=== PATIENT | male | born 1950 | race Caucasian/White ===

== ENCOUNTER 2018-01-08 11:38 | Emergency (ER) | payer MEDICARE, BC, SELFPAY ==
[2018-01-08 11:39] VITALS: BP 141/79; PULSE 61; RESP 13; TEMP 36.8; O2SAT 99; BMI 27.7
--- NOTE | 2018-01-08 12:12 | RAD_ITS ---
STUDY: X-RAY - LEFT HAND REASON FOR EXAM: Male, 67 years old. Sports injury TECHNIQUE: 3 view(s) of the hand. COMPARISON: None. FINDINGS: Normal radiocarpal articulation. Normal distal radioulnar joint. Normal visualized carpal bones. Normal carpal articulations Normal carpometacarpal articulation of the thumb. Normal second through fifth carpometacarpal joints. An oblique extra-articular fracture of the third metacarpal is present. There is mild dorsal displacement of the distal fracture fragment. Normal metacarpophalangeal joint of the thumb. Normal interphalangeal joint of the thumb. Normal proximal and distal phalanges of the thumb. Normal metacarpophalangeal joints of the second through fifth fingers. Normal proximal and distal interphalangeal joints of the second through fifth fingers. Normal phalanges of the second through fifth fingers. The soft tissue structures are unremarkable. RAD/Hand Min 3 Views IMPRESSION: An oblique extra-articular fracture of the third metacarpal is present. There is mild dorsal displacement of the distal fracture fragment. Electronically Signed: Tano Frazier MD at 12:51 EDT Tel , Service support ,
--- NOTE | 2018-01-08 13:13 | ED.VISSUMM ---
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 No loss of consciousness. Patient initially was dazed and a little lightheaded. Patient sustained a laceration to his right elbow and has pain in his left hand. Patient also sustained a small laceration to his left ear. Patient denies any neck pain, chest pain, or abdominal pain.] Physical Examination: [HEENT-PERRLA, EOMI. Cranial nerves II through XII grossly intact. TMs clear. Mucous membranes moist. No adenopathy. No C-spine tenderness on palpation. Evaluation of the left ear reveals a superficial skin abrasion of the upper inner aspect of the left pinna. Cardiovascular-regular rate and rhythm without murmur or ectopy Lungs-clear to auscultation, chest wall stable without crepitus or subcu emphysema Abdomen-normoactive bowel sounds, soft, nontender, no rebound or rigidity, no peritoneal signs. Extremities-intact ?4, normal range of motion, normal pulses. Patient has a 2.5 cm laceration over the right olecranon with no bony tenderness on palpation. Patient also has tenderness palpation over the left hand specifically over the third metacarpal with painful range of motion at the third MCP joint. Neurovascular intact distally. Test Results: [X-rays of the left hand showed a third metacarpal fracture.] Emergency Department Course and Treatment: [Laceration repair-wound of the right elbow sterilely draped and prepped. Wound cleansed with Shur-Clens and irrigated with copious saline with syringe. Using 5-0 nylon a total of 2 single interrupted sutures placed with good wound edge approximation. Patient tired procedure well.] Treatment Plan: [I discussed case with Dr. Nicanor Bearden of orthopedics. I suspect patient may have lacerated his olecranon bursa. Patient will be started on Keflex. Patient will follow up with Dr. Bearden in the office within next couple days.] Disposition: [Discharged home in stable condition. Patient will be given a sling and a prescription for Frazer for pain.] Impression: [Mechanical fall Laceration right elbow-simple repair-suspect laceration of olecranon bursa Left hand laceration third metacarpal Left ear skin abrasion] This note was generated with [employer] dictation software. It may contain incorrect words, spelling, and punctuation that were not noted in review of the chart prior to signing ED Disposition - Plan for ED Patient: Chief Complaint: Fall Referrals: Yasir Benavidez III, MD [Primary Care Provider] -
--- NOTE | 2018-01-08 13:18 | ED.DEP ---
ED Disposition - Plan for ED Patient: Chief Complaint: Fall Instructions: ED Avulsion Dermal, ED Fx Hand Closed, ED Laceration Ext Sutr Stap Tape Prescriptions: Hydrocodone Bitart/Apap 5-325 [Plummer 5/325] 1 - 2 tab PO Q4H PRN PRN 5 Days #20 tab PRN Reason: Pain Cephalexin [Keflex] 500 mg PO Q6 #28 cap Referrals: Yasir Benavidez III, MD [Primary Care Provider] - Nicanor Bearden DO [STAFF PHYSICIAN] - 3-5 Days
--- NOTE | 2018-01-08 13:34 | ED.RN ---
right elbow wound cleaned and dried. Bacitracin and dry sterile dressing applied. Left ear abrasion cleaned and dried but still bleeding. Small dry gauze dressing applied with firm pressure. Pt tolerated well. Instructed patient to not submerge wounds under water but getting them wet in the shower is ok, change dressing daily or sooner if soiled. Instructed to not get hand splint wet at all. pt communicates understanding.
[2018-01-08 13:38] VITALS: PULSE 72; RESP 16; O2SAT 98
== END 2018-01-08 13:39 | disposition home or self-care (01) ==
PROVIDERS: Emergency Provider Emergency Medicine; Family Provider Family Medicine; PCP Family Medicine
DX: S51.011A Laceration without foreign body of right elbow, initial encounter (principal); S61.412A Laceration without foreign body of left hand, initial encounter; S00.412A Abrasion of left ear, initial encounter; W03.XXXA Other fall on same level due to collision with another person, initial encounter; Y93.81 Activity, refereeing a sports activity; Y92.39 Other specified sports and athletic area as the place of occurrence of the external cause; Y99.0 Civilian activity done for income or pay
CPT/HCPCS: 12001; 73130; 99282

== ENCOUNTER → 2020-08-19 17:37 | Outpatient (CLI) | payer MEDICARE, BC, SELFPAY | PROVIDERS: PCP Family Medicine; Referring Provider Family Medicine; Visit Provider Family Medicine | DX: U07.1 COVID-19 (principal) | CPT/HCPCS: 87635; C9803; U0003 ==

== ENCOUNTER → 2021-03-19 15:02 | Outpatient (CLI) | payer MEDICARE, BC, SELFPAY ==
[2021-03-19 16:25] LABS: PSA,Total - Annual Screen 0.23 ng/mL (0.00-4.00)
== END ==
PROVIDERS: PCP Family Medicine; Visit Provider Nurse Practitioner Adult Health
DX: Z12.5 Encounter for screening for malignant neoplasm of prostate (principal)
CPT/HCPCS: 36415; 84153; G0103

== ENCOUNTER → 2021-03-26 07:47 | Outpatient (CLI) | payer MEDICARE, BC, SELFPAY ==
--- NOTE | 2021-03-26 07:49 | CT_ITS ---
STUDY: CT ABDOMEN AND PELVIS WITH AND WITHOUT CONTRAST REASON FOR EXAM: Male, 70 years old. GROSS HEMATURIA RADIATION DOSAGE (If Supplied By Facility): CTDIvol = ( 22.87 ) mGy, DLP = ( 3364.46 ) mGycm TECHNIQUE: Transaxial images were obtained from the dome of the diaphragm to the symphysis pubis without oral contrast. was administered. Sagittal and coronal images were reconstructed. Individualized dose optimization techniques were used for this CT. COMPARISON: Comparison is made with prior study 08/10/2011. FINDINGS: Minimal increased markings at the lung bases suggestive of mild scarring. This is unchanged. Coronary artery calcification. Stable cysts are seen in both the right and left lobes of the liver. Fatty infiltration of the liver. Normal gallbladder and extrahepatic biliary system. Normal spleen. Normal pancreas. Normal bilateral adrenal glands. Normal right kidney. There is a 5.2 mm calculus in the distal portion of the right ureter just proximal to the ureteral vesicle junction. There is a 1.9 cm cyst in the upper mid lateral aspect of the right kidney. Normal visualized stomach. Normal small intestine. Normal colon. The appendix is visualized and appears normal. There is scattered atherosclerotic calcification of the abdominal aorta. The distal abdominal aorta is slightly dilated with a transverse dimension of 3.1 cm.Normal inferior vena cava. Normal retroperitoneum. Mildly thickened gallbladder wall. There is enlargement of the prostate gland. The prostate measures 4.6 x 4.4 cm. This causes indentation of the bladder base. Scattered calcifications are seen within the prostate. There is a small umbilical hernia containing fat. Mild disc space narrowing at the L5-S1 level. CT/CT Abd/Pelvis W/WO Contrast IMPRESSION: Fatty infiltration of the liver. Stable hepatic cysts. There is a 5.2 mm calculus in the distal portion of the right ureter just proximal to the ureterovesical junction. Left renal cyst. Prostatic enlargement with indentation at the bladder base. Mild thickening of the bladder wall. Mild dilatation of the distal abdominal aorta with a transverse dimension of 3.1 cm Electronically Signed: Cole Herrera MD at 10:36 EDT , Service support ,
[2021-03-26 08:05] LABS: CREATININE FINGERSTICK 1.2 mg/dL (0.70-1.30); EGFR FINGERSTICK > 60.0000 mL/min (>60)
== END ==
PROVIDERS: PCP Family Medicine; Referring Provider Nurse Practitioner Adult Health; Visit Provider Nurse Practitioner Adult Health
DX: R31.0 Gross hematuria (principal)
CPT/HCPCS: 74178; Q9967

== ENCOUNTER → 2021-04-01 11:53 | Outpatient (CLI) | payer MEDICARE, BC, SELFPAY ==
--- NOTE | 2021-04-01 11:57 | EKG12_ITS ---
Test Reason : PREOP Blood Pressure : / mmHG Vent. Rate : 057 BPM Atrial Rate : 057 BPM P-R Int : 178 ms QRS Dur : 100 ms QT Int : 408 ms P-R-T Axes : 023 -15 003 degrees QTc Int : 397 ms Sinus bradycardia Otherwise normal ECG Confirmed by NATASHA BOWER, ESTEFANI ([id number]), news videotape editor JANET ECHEVERRIA ([id number]) on 04/03/2021 10:25:12 AM Referred By: BRENDAN Confirmed By:ESTEFANI KAUR MD
[2021-04-01 12:39] LABS: Hematocrit 45.4 % (40-54); Hemoglobin 15.1 g/dL (13.0-16.5); Mean Corp Hgb Conc 33.3 g/dL (32-36); Mean Corpuscular Hgb 32.4 pg (27.0-32.0); Mean Corpuscular Volume 97.4 fL (80-94); Mean Platelet Vol. 9.9 fl (6.2-12.0); Platelet Count 257 K/mm3 (150-450); RBC Distribution Width CV 13.5 % (11.6-14.6); RBC Distribution Width SD 48.4 fl (35.1-43.9); Red Blood Count 4.66 M/mm3 (4.6-6.2); White Blood Count 8.3 K/mm3 (4.4-11.0)
[2021-04-01 12:51] LABS: Anion Gap 2 (5-15); BUN 24 mg/dL (7-18); BUN/Creat Ratio 17.1 RATIO (10-20); Calcium,Total 9.1 mg/dL (8.5-10.1); Chloride 104 mmol/L (98-107); EST Glomerular Filtration Rate 53 mL/min (>60); Est Glom Filt Rate - Afr Amer 64 mL/min (>60); Glucose 103 mg/dL (74-106); Potassium 4.5 mmol/L (3.5-5.1); Sodium Level 137 mmol/L (136-145)
== END ==
PROVIDERS: PCP Family Medicine; Visit Provider Urology
DX: Z01.812 Encounter for preprocedural laboratory examination (principal); Z01.818 Encounter for other preprocedural examination; I10 Essential (primary) hypertension
CPT/HCPCS: 36415; 80048; 85027; 93005

== ENCOUNTER → 2021-04-13 14:59 | Outpatient (CLI) | payer MEDICARE, BC, SELFPAY ==
--- NOTE | 2021-04-13 | BLA_PTH ---
PATIENT: MORGAN NAVARRO LOC: [facility] U#:[id number] AGE/SX: 74/M ROOM: RE04/13/[address]: Dr. Erasto Panchal MD : 1950 BED: DIS: SPEC #: [id number] RECD: 04/13/21 14:48 STATUS: JORDI RODRIGUEZ #: [id number] BAN: 04/13/21 00:[address]: Erasto Panchal DEPT: SURGICAL PATHOLOGY RECD BY: Saleem Granado ENTERED: 04/14/21 08:07 SP TYPE: BLADDER BX OTHR DR: Dr. Evangelista Santos MD [facility] Tissues: Urinary bladder, NOS Procedures: Surgery Specimen Level V HEADER OPERATION: Bladder resection PRE-OP DIAGNOSIS: Bladder resection TISSUE SUBMITTED: Bladder tissue MICROSCOPIC DIAGNOSIS Urinary bladder tumor, transurethral resection: Fragments of detached, atypical urothelium. See comment. AM:mariana 04/15/2021 COMMENT The specimen primarily consists of blood clots and cauterized tissue. Present in the biopsy are also fragments of urothelium with atypical cytology, one of which has a polypoid morphology. Clinical correlation is suggested. Case has been reviewed in consultation with Dr. Borges who concurs with the above diagnosis. IDC:TERESITA MICROSCOPIC DESCRIPTION Slides are reviewed. GROSS DESCRIPTION Received in fixative is one container labeled with the patient's name and designated bladder tissue. The specimen consists of multiple fragments of hemorrhagic soft tissue mixed with blood clot that in aggregate measure 1 x 0.7 x 0.3 cm. The specimen is totally submitted in one cassette. / TERESITA:mariana 04/14/21 TC:? CPT: 81431
== END ==
PROVIDERS: PCP Family Medicine; Referring Provider Urology; Visit Provider Urology
DX: D49.4 Neoplasm of unspecified behavior of bladder (principal)
CPT/HCPCS: 88305; 88307

== ENCOUNTER → 2021-06-09 18:16 | Outpatient (CLI) | payer MEDICARE, BC, SELFPAY ==
--- NOTE | 2021-06-09 | CYSPIN_PTH ---
PATIENT: MORGAN NAVARRO LOC: [facility] U#:[id number] AGE/SX: 74/M ROOM: RE06/09/[address]: Dr. Erasto Panchal MD : 1950 BED: DIS: SPEC #: [id number] RECD: 06/09/21 18:17 STATUS: JORDI RESammy #: [id number] BAN: 06/09/21 00:[address]: Erasto Panchal DEPT: CYTOLOGY RECD BY: Phu Gardiner ENTERED: 06/10/21 11:59 SP TYPE: CYSPIN FL OTHR DR: Dr. Evangelista Santos MD Tissues: Urine Procedures: Pap Stain (control) Special Stain Group II Cytospin Fluid HEADER OPERATION: Not noted PRE-OP DIAGNOSIS: Malignant neoplasm of bladder TISSUE SUBMITTED: Urine for cytology DIAGNOSIS CYTOLOGY Urine for cytology (cytospin): Rare atypical urothelial cells present. AM:mariana 06/11/2021 CYTOLOGY STUDY Slides are reviewed. CYTOLOGY GROSS Received is 45 ml of clear yellow fluid labeled with the patient's name and and designated per the requisition as urine. Submitted for cytology preparation. / mariana 06/10/2021 TC:? CPT: 16679
[2021-06-09 18:18] LABS: Cytology, Body Fluid / CSF SEE PATHOLOGY REPORT
== END ==
PROVIDERS: PCP Family Medicine; Visit Provider Urology
DX: Z85.51 Personal history of malignant neoplasm of bladder (principal)
CPT/HCPCS: 88108; 88313

== ENCOUNTER 2021-10-09 08:41 | Day surgery (SDC) | payer MEDICARE, BC, SELFPAY ==
--- NOTE | 2021-10-02 08:35 | EKG12_ITS ---
Test Reason : PRE OP Blood Pressure : / mmHG Vent. Rate : 051 BPM Atrial Rate : 051 BPM P-R Int : 186 ms QRS Dur : 092 ms QT Int : 410 ms P-R-T Axes : 051 -01 027 degrees QTc Int : 377 ms Sinus bradycardia Otherwise normal ECG Confirmed by NATASHA BOWER, ESTEFANI ([id number]), assistant editor JANET ECHEVERRIA ([id number]) on 10/05/2021 9:36:16 AM Referred By: Erasto Panchal Confirmed By:ESTEFANI KAUR MD
[2021-10-02 09:15] LABS: Hematocrit 44.1 % (40-54); Hemoglobin 14.9 g/dL (13.0-16.5); Mean Corp Hgb Conc 33.8 g/dL (32-36); Mean Corpuscular Hgb 32.5 pg (27.0-32.0); Mean Corpuscular Volume 96.3 fL (80-94); Mean Platelet Vol. 9.7 fl (6.2-12.0); Platelet Count 248 K/mm3 (150-450); Red Blood Count 4.58 M/mm3 (4.6-6.2); White Blood Count 5.5 K/mm3 (4.4-11.0)
[2021-10-02 09:32] LABS: Anion Gap 3 (5-15); BUN 22 mg/dL (7-18); BUN/Creat Ratio 18.6 RATIO (10-20); Calcium,Total 9.5 mg/dL (8.5-10.1); Chloride 106 mmol/L (98-107); Creatinine, Serum 1.18 mg/dL (0.70-1.30); EST Glomerular Filtration Rate 65 mL/min (>60); Est Glom Filt Rate - Afr Amer 78 mL/min (>60); Glucose 103 mg/dL (74-106); Potassium 4.2 mmol/L (3.5-5.1); Sodium Level 141 mmol/L (136-145)
[2021-10-09] VITALS (8 sets, daily range): BP systolic 145–181; BP diastolic 74–95; PULSE 49–82; RESP 16–18; TEMP 36.2–36.5; O2SAT 97–100; BMI 28.9
[2021-10-09] MEDS: Lactated Ringers 1,000 ML 15 ML IV (09:20)
--- NOTE | 2021-10-09 10:45 | BLB_PTH ---
PATIENT: MORGAN NAVARRO LOC: [facility] [place] U#:[id number] AGE/SX: 71/M ROOM: RE10/09/[address]: Dr. Erasto Panchal MD : 1950 BED: DIS: 10/09/2021 SPEC #: [id number] RECD: 10/09/21 13:19 STATUS: JORDI RESammy #: [id number] BAN: 10/09/21 10:[address]: Erasto Panchal DEPT: SURGICAL PATHOLOGY RECD BY: Caitlin Ndiaye ENTERED: 10/12/21 08:05 SP TYPE: TURB OTHR DR: Dr. Evangelista Santos MD Tissues: Urinary bladder, NOS Procedures: Surgery Specimen Level IV HEADER OPERATION: Cysto, transurethral resection bladder, [employer] PRE-OP DIAGNOSIS: Malignant neoplasm of bladder TISSUE SUBMITTED: Bladder tissue MICROSCOPIC DIAGNOSIS Urinary bladder lesion, biopsy: Cystitis cystica and chronic cystitis. AM:mariana 10/13/2021 MICROSCOPIC DESCRIPTION Slides are reviewed. GROSS DESCRIPTION Received in fixative is one container labeled with the patient's name and designated bladder tissue. The specimen consists of three irregular fragments of dao soft tissue that in aggregate measure 0.5 x 0.2 x 0.1 cm. The specimen is totally submitted in one cassette. / SJ:mariana 10/12/2021 TC:3 CPT: 46565
[2021-10-09] MEDS: Cefazolin 2 GM in 0.9% Normal Saline 100 ML IV (11:37)
--- NOTE | 2021-10-09 12:18 | PCM.HP.STD ---
HPI - General HPI Narrative MORGAN NAVARRO, is a 71 M who presents for a turbt of for bladder cancer PFSH Medical History (Updated 10/01/21 @ 14:11 by Anne-Marie Lackey) Alcohol use Arthritis Bladder cancer COVID Former smoker History of kidney stones History of umbilical hernia Hypertension Injury of head and neck Leg cramps Migraine headache Redness of skin Transient global amnesia Home Medications lisinopril-hydrochlorothiazide 1 tab PO DAILY 10/01/21 [History Last Taken Unknown] ciprofloxacin HCl [Cipro] 500 mg PO BID #10 tab 10/09/21 [Rx Last Taken Unknown] Allergy/AdvReac Type Severity Reaction Status Date / Time No Known Allergies Allergy Verified 10/09/21 09:13 Surgical History (Updated 10/01/21 @ 13:39 by Anne-Marie Lackey) History of cataract extraction History of colonoscopy History of cystoscopy History of hand surgery Social History Smoking Status: Former smoker Vital Signs Vital Signs Vital Signs: 10/09/21 09:14 Temperature 97.7 F L Temperature Source Temporal Pulse Rate 60 Respiratory Rate 16 Respiratory Pattern Normal Blood Pressure 168/86 H Blood Pressure Mean 113 Blood Pressure Source Monitor Blood Pressure Position Semi-Fowlers Blood Pressure Location Left Arm Pulse Ox 100 Oxygen Delivery Method Room Air Weight Weight: 105 kg Body Mass Index (BMI) 28.9 Results Lab / Micro Data Result Diagrams: 10/02/21 08:45 10/02/21 08:45
--- NOTE | 2021-10-09 12:18 | PCM.DC ---
Discharge Instructions Diet Discharge Diet: No restrictions Activity Discharge Activity: Return to Normal Activity and May Not Drive (while taking narcotic pain medications.) Dressing / Incision Call your doctor if you observe: Fever of 101 or Higher Follow Up Care Please Follow Up With: Erasto Panchal MD When: Call [phone] for an appointment Test Results: Test results from this visit will be discussed in further detail at your follow-up appointment, if applicable. Discharge Plan Admission Primary Reason for Your Visit: bladder cancer Attending Provider: Erasto Panchal Primary Care Provider: Evangelista Santos Instructions Patient Instructions: Discharge Instructions for ... Discharge Orders/Prescriptions Prescriptions: New ciprofloxacin HCl [Cipro] 500 mg tablet 500 mg PO BID Qty: 10 RF: 0 Continued lisinopril-hydrochlorothiazide 20-12.5 mg tablet 1 tab PO DAILY RF: 0 Referrals / Follow Up: Evangelista Santos MD [Primary Care Provider] - Erasto Panchal MD [STAFF PHYSICIAN] - Disposition Disposition (needs filled in before D/C Order can be placed): Home, Self Care
--- NOTE | 2021-10-09 12:18 | PCM.OPRPT ---
Report of Operation Date of Procedure: 10/09/21 Pre-Operative Diagnosis: bladder tumors Post-Operative Diagnosis: multiple in overlapping sites Surgery/Procedure Performed:: TURBT med tumor and mitomycin C instillation Description of Surgical Findings:: Patient presented to the hospital for treatment of a tumor that was found in the bladder with a very large bladder tumor. Patient understands is possible it may not be able to resect the entire tumor. Patient also understands is possible that the patient may need multiple procedures or more invasive procedures to cure him of this cancer. Patient was taken back to the operating room after smooth induction of anesthesia the patient was placed supine on the table. The patient was placed in dorsolithotomy position. The urethra and genitals prepped and draped in usual sterile fashion. I went into the bladder with a 30 degree lens and a cystoscope and identified the tumor the tumor was about 2 centimeters in size and occupying multiple areas in the bladder, in posterior wall, lateral wall and upper lateral wall.. The right and left ureteral orifice were identified. The tumors were not involved in the ureteral orifices. I then placed the resectoscope and the bladder and resected the entire tumor down to the muscle. And then cauterized the resection base to obtained hemostasis. We then placed the catheter in the bladder and the patient was taken back to the PACU in stable condition. Mitomycin C was then placed into the bladder for post resection treatment. Surgeon: sincere Type of Anesthesia: General Special Medications: Mitomycin C Drains: none
--- NOTE | 2021-10-09 13:29 | SUR.PHASEI ---
Patient held [facility] c until 1319, completed [address] post updated
== END 2021-10-09 23:59 | disposition home or self-care (01) ==
LOC: SDC 08:42 → AC 08:42
PROVIDERS: Anesthesiology; PCP Family Medicine; Referring Provider Urology; Visit Provider Urology
PROC: 0TBB8ZZ Excision of Bladder, Via Natural or Artificial Opening Endoscopic (ICD-10-PCS; CPT 52234; principal; 2021-10-09 10:35)
DX: N30.80 Other cystitis without hematuria (principal); N30.20 Other chronic cystitis without hematuria; I10 Essential (primary) hypertension; Z87.891 Personal history of nicotine dependence; M19.90 Unspecified osteoarthritis, unspecified site; Z85.51 Personal history of malignant neoplasm of bladder; Z86.16 Personal history of COVID-19; Z87.442 Personal history of urinary calculi; Z87.19 Personal history of other diseases of the digestive system; Z79.899 Other long term (current) drug therapy
CPT/HCPCS: 52234; 51720; 00912; 36415; 80048; 85027; 88305; 88307; 93005; J7120; J2405; J3490; J9280

== ENCOUNTER → 2023-06-21 | Outpatient (CLI) | payer MEDICARE, BC, SELFPAY ==
[2023-06-21 10:08] LABS: PSA,Total - Annual Screen 0.22 ng/mL (0.00-4.00)
== END | disposition home or self-care (01) ==
LOC: LAB 08:27
PROVIDERS: PCP Family Medicine; Referring Provider Urology; Visit Provider Urology
DX: Z12.5 Encounter for screening for malignant neoplasm of prostate (principal)
CPT/HCPCS: 36415; 84153; G0103

== ENCOUNTER → 2024-10-05 | Outpatient (CLI) | payer MEDICARE, BC, SELFPAY ==
--- NOTE | 2024-10-05 14:03 | PCM.CR.HP2 ---
CR - History & Physical General Arrival date:: 10/05/24 Arrival time:: 14:04 Date of Referral:: 09/17/24 Date of CR Evaluation:: 10/05/24 Referring Physician: Dr. Tamayo Primary Diagnosis: CABG History of Present Cardiac Event Onset Date Coronary Artery Bypass Graft:: Yes Vessel: CARLIN-LAD, SVG-OM, SVG-PDA Medications Ambulatory Orders ?Medication ?Instructions ?Recorded lisinopril 20 1 tab PO DAILY BP 10/01/21 mg-hydrochlorothiazide 12.5 mg tablet ciprofloxacin HCl 500 mg tablet 500 mg PO BID #10 tabs 10/09/21 (Cipro) Allergies Allergies No Known Allergies Allergy (Verified 10/09/21 09:13) Sleep Disorder Evaluation Hx of Sleep Apnea: No Do you snore loudly (louder than talking or can be heard through closed doors)?: Yes Do you often feel tired/ fatigued/ sleepy during daytime?: Yes Has anyone observed you stop breathing during sleep?: Yes History of Hypertension (for STOP score): Yes STOP Results: Positive Advanced Directives Advanced Directives Power of Editing Computer Publisher: Yes Living Will: Yes Advance Directives Information Provided: Yes Advance Directives on File: No DNR Order?:: No Past Medical History Covid-19 Screening Physicial Symptoms Other Clinical Concerns Exposure Risk Pertinent Comorbidities Has a serious heart condition:: Yes Past Medical Illness Past Medical History (Updated 10/01/21 @ 14:11 by Anne-Marie Lackey) COVID U07.1 (+) 08/2020 Bladder cancer C67.9 Alcohol use Z72.89 1-2 drinks per day Redness of skin L53.9 itching subsides with lotions Arthritis M19.90 left big toe and eugenia ankles Migraine headache G43.909 approx 1 q 6mos Injury of head and neck S09.90XA, S19.9XXA herniated discs x3 in neck Former smoker Z87.891 Leg cramps R25.2 after running 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 Hypertension I10 per pt, controlled on meds History of kidney stones Z87.442 surgery 03/2021 History of umbilical hernia Z87.2016 Past Surgical History Past Surgical History (Updated 10/01/21 @ 13:39 by Anne-Marie Lackey) History of colonoscopy Z98.890 History of hand surgery Z98.890 Gaby Block History of cataract extraction Z98.49 x3 History of cystoscopy Z98.890 Social History Smoking History Smoking Status: Former smoker Years Smokin Packs Smoked per Day: 5 (stopped 24 years ago) Alcohol Use Alcohol Usage: No Occupation 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 Hobbies, Recreation, Social Activities Hobbies: Reading and Other (refs basketball ) Recreational Activities: I am able to engage in most, but not all activities Social Environment Status Marital Status: Current Living Arrangements Living Environment:: Spouse Children How many children do you have?: 2 Do any of your children live nearby?: Yes Safety Do you feel safe in your surroundings?: Yes Assistance Do you need any assistance at home?: no Review of Systems Review of Systems Hints Review of Present Symptoms: Reports Shortness of Breath with Exertion, Dizziness/Lightheadedness, Fatigue, Appetite - Normal, Appetite - Special Diet and Sleep - Normal; Denies Shortness of Breath at Rest, PVD, Operative Discomfort, Angina, Wound Healing, Heart Arrhythmia/Irregularities or Sexual Changes Pain Is Patient Pain Free?: No Risk Factor Assessment Chief Complaint Chief Complaint: CABG Vital Signs Pulse Ox: 99 Blood Pressure: 118/70 Pulse Pulse Rate: 66 Hypertension Blood Pressure Sitting - Right Arm: 118/70 Stress Stress: Home/Family Obesity Height: 6 ft 3 in Weight:: 218 lb Weight in Pounds: 218.0 lbs Body Mass Index (BMI): 27.2 Nutritional Referral for Obesity: No Physical Inactivity Physical Inactivity: Reg Exercise 30 min/day Risk Stratification Risk Guidelines: Moderate Risk: Risk Factor for Smoking, Risk Factor for Diabetes, Risk Factor for Obesity, Risk Factor for Sedentary Lifestyle and Risk Factor for Depression and Highest Risk: Risk Factor for Dyslipidemia and Risk Factor for Hypertension For Smoking Smoking Risk Guidelines For Dyslipidemia Dyslipidemia Risk Guidelines For Diabetes Mellitus Diabetes Risk Guidelines For Obesity/Overweight Obesity/Overweight Risk Guidelines For Hypertension Hypertension Risk Guidelines For Sedentary Lifestyle Sedentary Lifestyle Risk Guidelines For Depression Depression Risk Guidelines Motivation Motivation to Participate On a scale of 1 to 10, how prepared are you to commit to attending program?: 10 What do you see as barriers to successfully being able to complete the program?: nothing What do you see as the benefits of succesfully completing the program? In other words, what do you hope to get out of participating in the program?: no Are there issues you are dealing with that will interfere with completing the program?: no Do you have a spouse or signficant other, family or friends who will help support you to complete the program?: yes
[2024-10-05 14:17] VITALS: BP 118/70; PULSE 66; O2SAT 99
--- NOTE | 2024-10-05 14:17 | PCM.CR.ITP ---
Diagnosis General Information Admitting Diagnosis: CABG Personal Learning Style:: Audio/Visual Barriers to Learning: No Barriers Stage of change r/t lifestyle modifications:: Contemplation Gave educational material for:: Treating Heart Disease, How The Heart Works, What it means to have Heart Disease, How Coronary Artery Disease is Diagnosed, Heart Procedures, What Heart Medications Do, Risk Factors & Modifications, Living an Active Life, Nutrition, Emotions & Heart Disease, Stress Management & Relaxation and Sleep Disorders & Heart Disease Education/Goals Cardiac Rehabilitation Goals Personal Goals: Initial Assessment: Improve energy level, Participate in home exercise program, Get back to work, or to resume activities faster, Improve knowledge of cardiac disease, Improve muscle strength and endurance, Improve diet and eating habits (eat healthier), Control risk factors (learn risk factor modification) and Other goal: Scale for measuring improvement of personal goals Diagnosis & Disease Process Outcomes/Goals: Pt IDs own risk factors & lifestyle modifications by Session 10, Verbalizes symptoms of angina & response by session 3., Pt independently manages and Other Additional Outcomes/Goals: Plan/Interventions: Assist Pt to ID & engage in lifestyle modification to reduce CVD risk, Instruct on individual risk factors, Review symptoms of angina & emergency actions, Review secondary diagnosis & identify educational needs. and Other see comment 30 day Reassessments:: Not Met 30 day Reassessments:: Not Met 30 day Reassessments:: Not Met 30 day Reassessments:: Not Met Final Reassessments:: Not Met Safety Referral to Physical Therapy: No Referral to [facility] Case Management: No Fall Risk Assessed:: Yes Assistive Devices:: None Exercise - Initial Assessment Visit Date of Eval: 10/05/24 (initial eval ) Mets: Pre-: >3 METS for 30 minutes by discharge, >5 METS for 30 minutes by discharge, >7 METS for 30 minutes by discharge and Unable to meet goal due to: (see comment below) Physician Prescribed Exercise Modalities: Treadmill, Schwinn Airdyne AD-7, SciFit Stepper, SciFit Pro-II Ergometer and SciFit Lateral [place] Frequency: 3x/week for 12 weeks [36 sessions] Intensity: 60-80% of age predicted maximum heart rate reserve Duration: 30 - 45 minutes Current METSs:: 3 Resting Blood Pressure: 118/70 EKG Type: A-Fib RVR post op? Outcomes & Goals Goals:: Verbalizes understanding of THR, RPE & goal METS by session 6, Documents in home exercise log/reports 30 min aerobic 5 day/wk by DC, Demonstrates accurate pulse taking by DC and Other additional outcome/goals: see below Intervention & Plan Exercise Program Goals: Instruct on personal THR & RPE, Instruct on MET level & personal MET goal, Show patient to take own pulse /validate performance until accurate, Instruct on home exercise and Other additional plan/int Physical Activity Home Exercise Physical Activity - Home Exercise: Safe Exercise, Warm-up, Self-monitoring, Cool-Down, Home Exercise > 30 min Daily and Sitting Time <3 hours/daily Outcomes & Goals Outcomes/Goals: Demonstrates correct Warm-up/exercise Cool-Down (S3) if = 2.5 METs, Verbalizes symptoms of exercise intolerance by Session 3 (S3), Demonstrate safe equipment use (S3) & follows exercise prescrition (6) and Other: See below Intervention & Plan Plan/Intervention: Instruct warm-up & cool-down if exercising at > 2 METs, Instruct on symptoms of exercise intolerance & actions to take, Instruct & monitor on saf, Assess intial functional capacity & safety risk and Other See below Nutrition - Initial Assessment Visit Date of Eval: 10/05/24 (initial eval ) Cholesterol/Lipids (Other Core Measures) Determine presence & major risk factors that modify LDL goal: Cigarette smoking, Hypertension or hypertensive medication, Low HDL cholesterol <40 mg/dL*, Family history of premature CHD in Male < 55 years: female <65 yearsFa and Age men > 45 years; women >/= 55 years Outcomes/Goals: Pt IDs own risk factors & lifestyle modifications by Session 10, Verbalizes symptoms of angina & response by session 3., Pt independently manages and Other Additional Outcomes/Goals: Intervention/Plan: Advocate for lipid panel cholesterol medication if applicable, Instruct on personal lipid levels & lipid goals/NCEP guidelines, Instruct on cholesterol and Other additional plan/int Diabetes (Other Core Measures) Diabetes Type: Not Applicable Weight Mgt (Other Care) Height: 6 ft 3 in Weight:: 218 lb BMI: 27.2 Diagnosis Overweight/Obesity BMI> 30% ICD-10 E66: No Diagnosis High BMI/Morbid Obesity BMI> 35% ICD-10 Z68: No Outcomes/Goals: Pt sets, maintains & shows weight loss goal & trend during rehab and Other additional outcomes/goals Intervention/Plan: Instruct on ideal BMI & set weight loss goal w/patient, Assist pt to ID & incorporate diet changes for weight loss by S9, Refer to Structured Weight Loss program as appropriate, Encourage goal of using 250-300dcal per session for weight loss and Other additional plan/interventions Healthy Eating Habits Will attend diet classes:: Yes Outcomes/Goals:: Consume diet rich in vegs,fruits,whole grain/high fiber,fish,lean meat, Limit sat/trans fats,cholesterol & added salts & sugars and Other additional outcome/goals: Intervention/Plan:: Assess current eating habits and Other Additional plan/interventions Education Gave educational materials for:: Signs & symptoms of hypoglycemia, Signs & symptoms of hyperglycemia, Relate diabetes to coronary artery disease and Healthy eating Core - Initial Assessment Visit Date of Eval: 10/05/24 (initial eval ) Medication Compliance Preventative Medication(s):: Aspirin, Clopidogrel/P2Y12 inhibit, Statin/lipid and Eliquis H/O mental health issues: depression, anxiety, or addiction?: No Doesn?t believe in the benefits of treatment?: No Believes medications are unnecessary or harmful?: No Has a concern about medication side effects?: No Expresses concern over the cost of medications?: No Outcomes/Goals: Verbalizes medications,desired effect & common side effects @ DC, Pt self-reports following medication regimen, Keeps card in wallet w/medications listed by DC and Other additional outcome/goals: Interventions/plans: Instruct on medication effects & side effects, Review medication list w/patient every two weeks, Instruct importance of taking meds as ordered & assist problem solving and Other additional Tobacco Use Tobacco Use: Non-smoker How long ago did you quit using tobacco products?: Greater than or equal to 6 months ago Years Smokin (pt was smoking 2 packs a day. Pt stopped 24 years ago) Hypertension Hypertension Diagnosis:: Hypertension ICD-10 I10 Resting Blood Pressure:: 116/70 [employer] Hypertension Guidelines Outcomes/Goals: Able to verbalize/achieve optimal blood pressure <130/80, Incorporates diet changes & exercise for blood pressure control by DC and Other additional outcomes/goals Interventions/plan: Instruct on optimal blood pressure, hypertension & medications, Instruct on effects of sodium, alcohol, stress, exercise &hypertension and Other additional plan/interventions Tobacco Cessation Referral Smoking Cessation Referral:: No Individual Education/Counseling:: No Education Schedule Given:: Yes Psychosocial - Initial Assess VIsit Date of Eval: 10/05/24 (initial eval ) History of previous Mental disease:: No Target Goals Target Goals Psychosocial Test Tool Used:: [employer] QOL Cardiac and PHQ-9 Questionnaire phq-9 Severity Referral to Behavioral Health PS - Interventions: Yes: Attend Stress Management Classes Outcomes/Goals: See list Psychosocial Outcomes/Goals:: ID's personal stressors & 2 strategies to manage stress by discharge and Other Additional outcome/goals: Intervention/Plan: See List Interventions/Plan:: Assess stressors,coping strategies & signs of derpression on admission, Instruct/assist pt to develop coping & personal stress Mgt strategies, Refer to Behavioral Health if appropriate, Refer to Physician if appropriate, Instruct patient to recognize signs & symptoms of depression, Instruct patient to recog and Other additional plan/intervention Patient Health Questionnaire PHQ-9 Screening Initial Assessment: 1. Little interest or pleasure in doing things: Not at all 2. Feeling down, depressed, or hopeless: Several days 3. Trouble falling or staying asleep, or sleeping too much: Not at all 4. Feeling tired or having little energy: More than half the days 5. Poor appetite or overeating: Several days 6. Feeling bad about yourself -- or that you are a failure or have let yourself or your family down: Not at all 7. Trouble concentrating on things, such as reading the newspaper or watching television: Not at all 8. Moving or speaking so slowly that other people could have noticed. Or the opposite - being so fidgety or restless that you have been moving around a lot more than usual: Several days 9. Thoughts that you would be better off , or of hurting yourself in some way: Not at all How difficult have these problems made it for you to do your work, take care of things at home, or get along with other people?: Somewhat difficult Total Score: 5 ABDULAZIZ-Q SV Test Statements CAD is a disease of the arteries in the heart: False Examples of risk factors for heart disease: True Angina is chest pain or discomfort: True The benefits of resistance training include: True Eating more meat and dairy products: False Anti-platelet medications such as aspirin are important: True The only effective way to manage stress: False An exercise warm-up slowly increases heart rate: True Prepared, processed foods usually have high sodium: True Depression is common after a heart attack: True The statin medications lower cholesterol: True To control blood pressure, lower the amount of sodium: True If someone gets chest discomfort during walking: False Transfats are partially hydrogenated vegetable oils: True Sleep apnea that is not treated increases the risk: I Don't Know To control cholesterol, one should become a vegetarian: False Someone knows if he/she is exercising at the right level: I Don't Know Diabetes cannot be prevented with exercise & health eating: False Stress is a large risk for heart attack: True A diet that can help lower blood pressure is rich in: True Total Score Total Correct Responses: 18 Self-Efficacy 6-Item Scale Initial Assessment: We would like to know how confident you are in doing certain activities. Please select your confidence level for: Fatigue Select Number: 10 Physical Discomfort or Pain Select Number: 10 Emotional Distress Select Number: 10 Other Symptoms or Health Problems Select Number: 10 Different Tasks and Activities Select Number: 10 Medication Select Number: 10 Total Score:: 10 Nutrition Survey Nutrition Survey Instructions Scoring Instructions Nutrition Survey Initial: Have you lost >10 lbs over the past 2 months without trying?: Yes Are you following a special diet at home for diabetes, low fat, or low salt?: Yes Are you interested in meeting with a dietitian for help understanding your diet?: Yes Do you eat less than 3 meals a day?: Yes Do you eat fatty meats (rueda, sausage, ribs, etc), fried foods, desserts, large amounts of salad dressings, margarine, butter, or cheese most days?: No Do you have food allergies? [Enter types in comment field]: No Do you eat in restaurants more than 3 times a week?: Yes Do you season food with salt, seasoning salt, or garlic salt?: No Do you used canned, boxed, frozen meals, or soups, seasoning packets?: No Total Score:: 5 Exercise - 30-day Assessment Physician Prescribed Exercise Modalities: Treadmill, Schwinn Airdyne AD-7, SciFit Stepper, SciFit Pro-II Ergometer and SciFit Lateral [employer] Coordinator Exercise - 60-day Assessment Physician Prescribed Exercise Modalities: Treadmill, Schwinn Airdyne AD-7, SciFit Stepper, SciFit Pro-II Ergometer and SciFit Lateral [place] Exercise - 90-day Assessment Physician Prescribed Exercise Modalities: Treadmill, Schwinn Airdyne AD-7, SciFit Stepper, SciFit Pro-II Ergometer and SciFit Lateral [place] Exercise - Final/Discharge Physician Prescribed Exercise Modalities: Treadmill, Alfonso Adams AD-7, SciFit Stepper, SciFit Pro-II Ergometer and SciFit Lateral [employer] Coordinator Frequency: 3x/week for 12 weeks [36 sessions] Intensity: 60-80% of age predicted maximum heart rate reserve Current METSs:: 3 Nutrition - 30-Day Assessment Weight Mgt (Other Care) Height: 6 ft 3 in Weight:: 218 lb BMI: 27.2 Nutrition - 60-Day Assessment Weight Mgt (Other Care) Height: 6 ft 3 in Weight:: 218 lb BMI: 27.2 Core - 30-Day Assessment Tobacco Use Years Smokin (pt was smoking 2 packs a day. Pt stopped 24 years ago) Core - Final Assessment Hypertension Resting Blood Pressure:: 116/70 [employer] [employer] Hypertension Guidelines Core - 60-Day Assessment Hypertension Resting Blood Pressure:: 116/70 [employer] [employer] Hypertension Guidelines Psychosocial - 30-Day Assess Target Goals Target Goals Referral to Behavioral Health PS - Interventions: Yes: Attend Stress Management Classes Psychosocial - 60-Day Assess Target Goals Target Goals Referral to Behavioral Health PS - Interventions: Yes: Attend Stress Management Classes Psychosocial - 90-Day Assess Target Goals Target Goals Referral to Behavioral Health PS - Interventions: Yes: Attend Stress Management Classes Psychosocial - Final Assessmen Target Goals Target Goals Referral to Behavioral Health PS - Interventions: Yes: Attend Stress Management Classes Nutrition - 90-Day Assessment Weight Mgt (Other Care) Height: 6 ft 3 in Weight:: 218 lb BMI: 27.2 Nutrition - Final Assessment Weight Mgt (Other Care) Height: 6 ft 3 in Weight:: 218 lb BMI: 27.2
[2024-10-05 15:14] VITALS: BP 116/70; BP 118/70; BMI 27.2
[2024-10-05 15:18] VITALS: BMI 27.2
== END | disposition home or self-care (01) ==
LOC: CR 13:59
PROVIDERS: PCP Family Medicine; Visit Provider Thoracic Surgery (Cardiothoracic Vascular Surgery)
DX: Z95.1 Presence of aortocoronary bypass graft (principal)

== ENCOUNTER 2024-11-09 09:15 | Outpatient (RCR) | payer MEDICARE, BC, SELFPAY ==
[2024-10-05 15:14] VITALS: BMI 27.2
--- NOTE | 2024-11-02 08:36 | CR.ITP_ITS ---
Exercise - Initial Assessment Visit Session #:: 5 Physician Prescribed Exercise Modalities: Treadmill, Schwinn Airdyne AD-7 and SciFit Stepper Nutrition - Initial Assessment Weight Mgt (Other Care) Height: 6 ft 3 in Weight:: 219 lb 8 oz BMI: 27.4 Core - Initial Assessment Tobacco Use Years Smokin (Pt was smoking 2 packs a day. Pt stopped 24 years ago.) Psychosocial - Initial Assess Target Goals Target Goals Referral to Behavioral Health PS - Interventions: Yes: Attend Stress Management Classes Patient Health Questionnaire PHQ-9 Screening 30-Day Re-eval Assessment: 1. Little interest or pleasure in doing things: Not at all 2. Feeling down, depressed, or hopeless: Several days 3. Trouble falling or staying asleep, or sleeping too much: Not at all 4. Feeling tired or having little energy: More than half the days 5. Poor appetite or overeating: Several days 6. Feeling bad about yourself -- or that you are a failure or have let yourself or your family down: Not at all 7. Trouble concentrating on things, such as reading the newspaper or watching television: Not at all 8. Moving or speaking so slowly that other people could have noticed. Or the opposite - being so fidgety or restless that you have been moving around a lot more than usual: Several days 9. Thoughts that you would be better off , or of hurting yourself in some way: Not at all How difficult have these problems made it for you to do your work, take care of things at home, or get along with other people?: Somewhat difficult Total Score: 5 Self-Efficacy 6-Item Scale 30-Day Re-eval Assessment: We would like to know how confident you are in doing certain activities. Please select your confidence level for: Fatigue Select Number: 10 Physical Discomfort or Pain Select Number: 10 Emotional Distress Select Number: 10 Other Symptoms or Health Problems Select Number: 10 Different Tasks and Activities Select Number: 10 Medication Select Number: 10 Total Score:: 10 Nutrition Survey Nutrition Survey Instructions Scoring Instructions Exercise - 30-day Assessment Visit Date of Eval: 11/02/24 Session #:: 5 Physician Prescribed Exercise Modalities: Treadmill, Schwinn Airdyne AD-7 and SciFit Stepper Frequency: 3x/week for 12 weeks [36 sessions] Intensity: 60-80% of age predicted maximum heart rate reserve Duration: 30 - 45 minutes Current METSs:: 3.9 Target Heart Rate:: 88-110 Current RPE:: 11-12 Maximum Excercise HR:: 111 Resting Blood Pressure: 150/90 Maximum Exercise Blood Pressure: 162/104 EKG Type: NSR to ST with rare PVC's Outcomes & Goals Goals:: Verbalizes understanding of THR, RPE & goal METS by session 6, Documents in home exercise log/reports 30 min aerobic 5 day/wk by DC, Demonstrates accurate pulse taking by DC and Other additional outcome/goals: see below Intervention & Plan Exercise Program Goals: Instruct on personal THR & RPE, Instruct on MET level & personal MET goal, Show patient to take own pulse /validate performance until accurate, Instruct on home exercise and Other additional plan/int Physical Activity Home Exercise Physical Activity - Home Exercise: Safe Exercise, Warm-up, Self-monitoring, Cool-Down, Home Exercise > 30 min Daily and Sitting Time <3 hours/daily Outcomes & Goals Outcomes/Goals: Demonstrates correct Warm-up/exercise Cool-Down (S3) if = 2.5 METs, Verbalizes symptoms of exercise intolerance by Session 3 (S3), Demonstrate safe equipment use (S3) & follows exercise prescrition (6) and Other: See below Intervention & Plan Plan/Intervention: Instruct warm-up & cool-down if exercising at > 2 METs, Instruct on symptoms of exercise intolerance & actions to take, Instruct & monitor on saf, Assess intial functional capacity & safety risk and Other See below 30-day Reassessments 30 day Reassessments:: Progressing Reassessment Notes & Comments:: RPE explained to pt. Pt demonstrates understanding. Exercise - 60-day Assessment Physician Prescribed Exercise Modalities: Treadmill, Schwinn Airdyne AD-7 and SciFit Stepper Exercise - 90-day Assessment Physician Prescribed Exercise Modalities: Treadmill, Schwinn Airdyne AD-7 and SciFit Stepper Exercise - Final/Discharge Physician Prescribed Exercise Modalities: Treadmill, Schwinn Airdyne AD-7 and SciFit Stepper Nutrition - 30-Day Assessment Program Goals Nutrition Program Goals Patient has diagnosis of Hyperlipidemia (ICD E78)?: Yes Visit Date of Eval: 11/02/24 Session #:: 5 Cholesterol/Lipids (Other Core Measures) Determine presence & major risk factors that modify LDL goal: Cigarette smoking, Hypertension or hypertensive medication, Low HDL cholesterol <40 mg/dL*, Family history of premature CHD in Male < 55 years: female <65 yearsFa and Age men > 45 years; women >/= 55 years Outcomes/Goals: Pt IDs own risk factors & lifestyle modifications by Session 10, Verbalizes symptoms of angina & response by session 3., Pt independently manages and Other Additional Outcomes/Goals: Intervention/Plan: Advocate for lipid panel cholesterol medication if applicable, Instruct on personal lipid levels & lipid goals/NCEP guidelines, Instruct on cholesterol and Other additional plan/int Diabetes (Other Core Measures) Diabetes Type: Not Applicable Weight Mgt (Other Care) Height: 6 ft 3 in Weight:: 219 lb 8 oz BMI: 27.4 Diagnosis Overweight/Obesity BMI> 30% ICD-10 E66: No Diagnosis High BMI/Morbid Obesity BMI> 35% ICD-10 Z68: No Outcomes/Goals: Pt sets, maintains & shows weight loss goal & trend during rehab and Other additional outcomes/goals Intervention/Plan: Instruct on ideal BMI & set weight loss goal w/patient, Assist pt to ID & incorporate diet changes for weight loss by S9, Refer to Structured Weight Loss program as appropriate, Encourage goal of using 250-300 dcal per session for weight loss and Other additional plan/interventions Healthy Eating Habits Will attend diet classes:: Yes Outcomes/Goals:: Consume diet rich in vegs,fruits,whole grain/high fiber,fish,lean meat, Limit sat/trans fats,cholesterol & added salts & sugars and Other additional outcome/goals: Intervention/Plan:: Assess current eating habits and Other Additional plan/interventions 30-day Reassessments:: Progressing Reassessment Notes & Comments:: Pt is attending nutrition class this week. Low sodium heart healthy diet encouraged. Education Gave educational materials for:: Signs & symptoms of hypoglycemia, Signs & symptoms of hyperglycemia, Relate diabetes to coronary artery disease and Healthy eating Nutrition - 60-Day Assessment Weight Mgt (Other Care) Height: 6 ft 3 in Weight:: 219 lb 8 oz BMI: 27.4 Core - 30-Day Assessment Visit Date of Eval: 11/02/24 Session #:: 5 Medication Compliance Preventative Medication(s):: Aspirin, JENNY inhibitor, Clopidogrel/P2Y12 inhibit, Statin/lipid and Eliquis H/O mental health issues: depression, anxiety, or addiction?: No Doesn?t believe in the benefits of treatment?: No Believes medications are unnecessary or harmful?: No Has a concern about medication side effects?: No Expresses concern over the cost of medications?: No Outcomes/Goals: Verbalizes medications,desired effect & common side effects @ DC, Pt self-reports following medication regimen, Keeps card in wallet w/medications listed by DC and Other additional outcome/goals: Interventions/plans: Instruct on medication effects & side effects, Review medication list w/patient every two weeks, Instruct importance of taking meds as ordered & assist problem solving and Other additional 30-day Reassessments:: Progressing Reassessment Notes & Comments:: Lisinopril 5 mg added 11/01/24 due to high BP's Tobacco Use Tobacco Use: Non-smoker How long ago did you quit using tobacco products?: Greater than or equal to 6 months ago Years Smokin (Pt was smoking 2 packs a day. Pt stopped 24 years ago.) Do you use smokeless tobacco?: No Outcomes/Goals: Smoking cessation achieved or maintained by discharge, Identify aids/strategies for achieving smoking cessation by session 6 and Other additional outcome/goals Interventions/plan: Instruct on effects of smoking & provide smoking cessation resource, Assist pt to set quit date & provide encouragement, Assist pt to develop strategies to achieve/maintain quit date, Assist pt w/nicotine replacement & medication for cessation success and Other additional plan/interventions 30-day Reassessments:: Met Reassessment Notes & Comments:: Pt is no longer a smoker Hypertension Hypertension Diagnosis:: Hypertension ICD-10 I10 Resting Blood Pressure:: 150/90 [place] [employer] Hypertension Guidelines Peak Exercise Blood Pressure:: 162/104 Outcomes/Goals: Able to verbalize/achieve optimal blood pressure <130/80, Incorporates diet changes & exercise for blood pressure control by DC and Other additional outcomes/goals Interventions/plan: Instruct on optimal blood pressure, hypertension & medications, Instruct on effects of sodium, alcohol, stress, exercise &hypertension and Other additional plan/interventions 30 day Reassessments:: Progressing Reassessment Notes & Comments:: 5 mg lisinopril added 11/01/24. Will continue to monitor and send report to physician if necessary. Tobacco Cessation Referral Smoking Cessation Referral:: No Individual Education/Counseling:: No Education Schedule Given:: Yes Psychosocial - 30-Day Assess VIsit Date of Eval: 11/02/24 History of previous Mental disease:: No Target Goals Target Goals Psychosocial Test Tool Used:: [employer] Power QOL Cardiac and PHQ-9 Questionnaire phq-9 Severity Referral to Behavioral Health PS - Interventions: Yes: Attend Stress Management Classes Outcomes/Goals: See list Psychosocial Outcomes/Goals:: ID's personal stressors & 2 strategies to manage stress by discharge and Other Additional outcome/goals: Intervention/Plan: See List Interventions/Plan:: Assess stressors,coping strategies & signs of derpression on admission, Instruct/assist pt to develop coping & personal stress Mgt strategies, Refer to Behavioral Health if appropriate, Refer to Physician if appropriate, Instruct patient to recognize signs & symptoms of depression, Instruct patient to recog and Other additional plan/intervention 30-day Reassessments: 30 day Reassessments:: Met Reassessment Notes & Comments:: ?Pt denies any psychosocial issues at this time. Psychosocial - 60-Day Assess Target Goals Target Goals Referral to Behavioral Health PS - Interventions: Yes: Attend Stress Management Classes Outcomes/Goals: See list Psychosocial Outcomes/Goals:: ID's personal stressors & 2 strategies to manage stress by discharge and Other Additional outcome/goals: Psychosocial - 90-Day Assess Target Goals Target Goals Referral to Behavioral Health PS - Interventions: Yes: Attend Stress Management Classes Psychosocial - Final Assessmen Target Goals Target Goals Referral to Behavioral Health PS - Interventions: Yes: Attend Stress Management Classes Nutrition - 90-Day Assessment Weight Mgt (Other Care) Height: 6 ft 3 in Weight:: 219 lb 8 oz BMI: 27.4 Nutrition - Final Assessment Weight Mgt (Other Care) Height: 6 ft 3 in Weight:: 219 lb 8 oz BMI: 27.4
[2024-11-02 08:52] VITALS: BP 150/90; BMI 27.4
== END 2024-11-09 23:59 ==
LOC: CR 09:15
PROVIDERS: PCP Family Medicine; Referring Provider Thoracic Surgery (Cardiothoracic Vascular Surgery); Visit Provider Thoracic Surgery (Cardiothoracic Vascular Surgery)
DX: Z95.1 Presence of aortocoronary bypass graft (principal)
CPT/HCPCS: 93798

== ENCOUNTER 2024-12-10 09:15 | Outpatient (RCR) | payer MEDICARE, BC, SELFPAY ==
[2024-11-02 08:52] VITALS: BMI 27.4
[2024-11-10 01:42] VITALS: BP 150/90
--- NOTE | 2024-11-29 07:28 | PCM.CR.ITP ---
Exercise - Initial Assessment Physician Prescribed Exercise Modalities: Treadmill, Schwinn Airdyne AD-7 and SciFit Stepper Nutrition - Initial Assessment Weight Mgt (Other Care) Height: 6 ft 3 in Weight:: 219 lb BMI: 27.3 Core - Initial Assessment Hypertension Resting Blood Pressure:: 126/80 [place] [employer] Hypertension Guidelines Psychosocial - Initial Assess Target Goals Target Goals Referral to Behavioral Health PS - Interventions: Yes: Attend Stress Management Classes Patient Health Questionnaire PHQ-9 Screening 60-Day Re-eval Assessment: 1. Little interest or pleasure in doing things: Not at all 2. Feeling down, depressed, or hopeless: Several days 3. Trouble falling or staying asleep, or sleeping too much: Not at all 4. Feeling tired or having little energy: More than half the days 5. Poor appetite or overeating: Several days 6. Feeling bad about yourself -- or that you are a failure or have let yourself or your family down: Not at all 7. Trouble concentrating on things, such as reading the newspaper or watching television: Not at all 8. Moving or speaking so slowly that other people could have noticed. Or the opposite - being so fidgety or restless that you have been moving around a lot more than usual: Several days 9. Thoughts that you would be better off , or of hurting yourself in some way: Not at all How difficult have these problems made it for you to do your work, take care of things at home, or get along with other people?: Somewhat difficult Total Score: 5 Self-Efficacy 6-Item Scale 60-Day Re-eval Assessment: We would like to know how confident you are in doing certain activities. Please select your confidence level for: Fatigue Select Number: 10 Physical Discomfort or Pain Select Number: 10 Emotional Distress Select Number: 10 Other Symptoms or Health Problems Select Number: 10 Different Tasks and Activities Select Number: 10 Medication Nutrition Survey Nutrition Survey Instructions Scoring Instructions Exercise - 30-day Assessment Physician Prescribed Exercise Modalities: Treadmill, Schwinn Airdyne AD-7 and SciFit Stepper Exercise - 60-day Assessment Visit Date of Eval: 11/29/24 Session #:: 17 Physician Prescribed Exercise Modalities: Treadmill, Schwinn Airdyne AD-7 and SciFit Stepper Frequency: 3x/week for 12 weeks [36 sessions] Intensity: 60-80% of age predicted maximum heart rate reserve Duration: 30 - 45 minutes Current METSs:: 5 Target Heart Rate:: 88-110 Current RPE:: 11.5-12 Maximum Excercise HR:: 118 Resting Blood Pressure: 118/68 Maximum Exercise Blood Pressure: 160/88 EKG Type: SR to ST w/ rare PAC, PVC. 1 Vent couplet. 1 4 beat run ectopic atrial ta Outcomes & Goals Goals:: Verbalizes understanding of THR, RPE & goal METS by session 6, Documents in home exercise log/reports 30 min aerobic 5 day/wk by DC, Demonstrates accurate pulse taking by DC and Other additional outcome/goals: see below Intervention & Plan Exercise Program Goals: Instruct on personal THR & RPE, Instruct on MET level & personal MET goal, Show patient to take own pulse /validate performance until accurate, Instruct on home exercise and Other additional plan/int Physical Activity Home Exercise Physical Activity - Home Exercise: Safe Exercise, Warm-up, Self-monitoring, Cool-Down, Home Exercise > 30 min Daily and Sitting Time <3 hours/daily Outcomes & Goals Outcomes/Goals: Demonstrates correct Warm-up/exercise Cool-Down (S3) if = 2.5 METs, Verbalizes symptoms of exercise intolerance by Session 3 (S3), Demonstrate safe equipment use (S3) & follows exercise prescrition (6) and Other: See below Intervention & Plan Plan/Intervention: Instruct warm-up & cool-down if exercising at > 2 METs, Instruct on symptoms of exercise intolerance & actions to take, Instruct & monitor on saf, Assess intial functional capacity & safety risk and Other See below 30-day Reassessments 30 day Reassessments:: Progressing Reassessment Notes & Comments:: Proper warm up and cool down explained to pt. Pt demonstrates understanding in his daily sessions. Exercise - 90-day Assessment Physician Prescribed Exercise Modalities: Treadmill, Schwinn Airdyne AD-7 and SciFit Stepper Exercise - Final/Discharge Physician Prescribed Exercise Modalities: Treadmill, Schwinn Airdyne AD-7 and SciFit Stepper Nutrition - 30-Day Assessment Weight Mgt (Other Care) Height: 6 ft 3 in Weight:: 219 lb BMI: 27.3 Nutrition - 60-Day Assessment Program Goals Nutrition Program Goals Patient has diagnosis of Hyperlipidemia (ICD E78)?: Yes Visit Date of Eval: 11/29/24 Session #:: 17 Cholesterol/Lipids (Other Core Measures) Determine presence & major risk factors that modify LDL goal: Cigarette smoking, Hypertension or hypertensive medication, Low HDL cholesterol <40 mg/dL*, Family history of premature CHD in Male < 55 years: female <65 yearsFa and Age men > 45 years; women >/= 55 years Outcomes/Goals: Pt IDs own risk factors & lifestyle modifications by Session 10, Verbalizes symptoms of angina & response by session 3., Pt independently manages and Other Additional Outcomes/Goals: Intervention/Plan: Advocate for lipid panel cholesterol medication if applicable, Instruct on personal lipid levels & lipid goals/NCEP guidelines, Instruct on cholesterol and Other additional plan/int Diabetes (Other Core Measures) Diabetes Type: Not Applicable Weight Mgt (Other Care) Height: 6 ft 3 in Weight:: 219 lb BMI: 27.3 Diagnosis Overweight/Obesity BMI> 30% ICD-10 E66: No Diagnosis High BMI/Morbid Obesity BMI> 35% ICD-10 Z68: No Outcomes/Goals: Pt sets, maintains & shows weight loss goal & trend during rehab and Other additional outcomes/goals Intervention/Plan: Instruct on ideal BMI & set weight loss goal w/patient, Assist pt to ID & incorporate diet changes for weight loss by S9, Refer to Structured Weight Loss program as appropriate, Encourage goal of using 250-300dcal per session for weight loss and Other additional plan/interventions Healthy Eating Habits Will attend diet classes:: Yes Outcomes/Goals:: Consume diet rich in vegs,fruits,whole grain/high fiber,fish,lean meat, Limit sat/trans fats,cholesterol & added salts & sugars and Other additional outcome/goals: Intervention/Plan:: Assess current eating habits and Other Additional plan/interventions 30-day Reassessments:: Met Reassessment Notes & Comments:: Pt has attended nutrition class and understands the benefits of a heart healthy low sodium diet. Pt is at a healthy weight. Will continue to monitor. Education Gave educational materials for:: Signs & symptoms of hypoglycemia, Signs & symptoms of hyperglycemia, Relate diabetes to coronary artery disease and Healthy eating Core - Final Assessment Hypertension Resting Blood Pressure:: 126/80 [place] [employer] Hypertension Guidelines Core - 60-Day Assessment Visit Date of Eval: 11/29/24 Session #:: 17 Medication Compliance Preventative Medication(s):: Aspirin, JENNY inhibitor, Clopidogrel/P2Y12 inhibit, Statin/lipid and Eliquis H/O mental health issues: depression, anxiety, or addiction?: No Doesn?t believe in the benefits of treatment?: No Believes medications are unnecessary or harmful?: No Has a concern about medication side effects?: No Expresses concern over the cost of medications?: No Outcomes/Goals: Verbalizes medications,desired effect & common side effects @ DC, Pt self-reports following medication regimen, Keeps card in wallet w/medications listed by DC and Other additional outcome/goals: Interventions/plans: Instruct on medication effects & side effects, Review medication list w/patient every two weeks, Instruct importance of taking meds as ordered & assist problem solving and Other additional Reassessment Notes & Comments:: 11/16/24 Lisinopril was increased to 10 mg QD. Tobacco Use Tobacco Use: Non-smoker How long ago did you quit using tobacco products?: Greater than or equal to 6 months ago (Pt smoked for 26 years. Pt was smoking 2 packs a day. Pt stopped smoking 24 years ago.) 30-day Reassessments:: Met Hypertension Hypertension Diagnosis:: Hypertension ICD-10 I10 Resting Blood Pressure:: 118/68 Resting Blood Pressure:: 126/80 [place] [employer] Hypertension Guidelines Peak Exercise Blood Pressure:: 160/88 Outcomes/Goals: Able to verbalize/achieve optimal blood pressure <130/80, Incorporates diet changes & exercise for blood pressure control by DC and Other additional outcomes/goals Interventions/plan: Instruct on optimal blood pressure, hypertension & medications, Instruct on effects of sodium, alcohol, stress, exercise &hypertension and Other additional plan/interventions 30 day Reassessments:: Progressing Reassessment Notes & Comments:: Pt's BP has improved. Will continue to monitor and report to physician if necessary. 11/16/24 Lisinopril was increased to 10 mg QD. Tobacco Cessation Referral Smoking Cessation Referral:: No Individual Education/Counseling:: No Education Schedule Given:: Yes Psychosocial - 30-Day Assess Target Goals Target Goals Referral to Behavioral Health PS - Interventions: Yes: Attend Stress Management Classes Outcomes/Goals: See list Psychosocial Outcomes/Goals:: ID's personal stressors & 2 strategies to manage stress by discharge and Other Additional outcome/goals: Psychosocial - 60-Day Assess VIsit Date of Eval: 11/29/24 Session #:: 17 History of previous Mental disease:: No Target Goals Target Goals Psychosocial Test Tool Used:: [employer] Power QOL Cardiac and PHQ-9 Questionnaire phq-9 Severity Referral to Behavioral Health PS - Interventions: Yes: Attend Stress Management Classes Outcomes/Goals: See list Psychosocial Outcomes/Goals:: ID's personal stressors & 2 strategies to manage stress by discharge and Other Additional outcome/goals: Intervention/Plan: See List Interventions/Plan:: Assess stressors,coping strategies & signs of derpression on admission, Instruct/assist pt to develop coping & personal stress Mgt strategies, Refer to Behavioral Health if appropriate, Refer to Physician if appropriate, Instruct patient to recognize signs & symptoms of depression, Instruct patient to recog and Other additional plan/intervention 30-day Reassessments: 30 day Reassessments:: Not Met Reassessment Notes & Comments:: Pt denies any psychosocial issues at this time Psychosocial - 90-Day Assess Target Goals Target Goals Referral to Behavioral Health PS - Interventions: Yes: Attend Stress Management Classes Psychosocial - Final Assessmen Target Goals Target Goals Referral to Behavioral Health PS - Interventions: Yes: Attend Stress Management Classes Nutrition - 90-Day Assessment Weight Mgt (Other Care) Height: 6 ft 3 in Weight:: 219 lb BMI: 27.3 Nutrition - Final Assessment Weight Mgt (Other Care) Height: 6 ft 3 in Weight:: 219 lb BMI: 27.3
[2024-11-29 07:41] VITALS: BP 118/68; BP 126/80; BMI 27.3
== END 2024-12-10 23:59 ==
LOC: CR 09:15
PROVIDERS: PCP Family Medicine; Referring Provider Thoracic Surgery (Cardiothoracic Vascular Surgery); Visit Provider Thoracic Surgery (Cardiothoracic Vascular Surgery)
DX: Z95.1 Presence of aortocoronary bypass graft (principal)
CPT/HCPCS: 93798

== ENCOUNTER 2025-01-09 09:15 | Outpatient (RCR) | payer MEDICARE, BC, SELFPAY ==
[2024-11-29 07:41] VITALS: BMI 27.3
[2024-12-11 00:50] VITALS: BP 118/68; BP 126/80; BP 150/90
--- NOTE | 2024-12-28 08:20 | CR.ITP_ITS ---
Exercise - Initial Assessment Physician Prescribed Exercise Modalities: Treadmill, Schwinn Airdyne AD-7 and SciFit Stepper Nutrition - Initial Assessment Weight Mgt (Other Care) Height: 6 ft 3 in Weight:: 219 lb 8 oz BMI: 27.4 Psychosocial - Initial Assess Target Goals Target Goals Referral to Behavioral Health PS - Interventions: Yes: Attend Stress Management Classes Patient Health Questionnaire PHQ-9 Screening 90-Day Re-eval Assessment: 1. Little interest or pleasure in doing things: Not at all 2. Feeling down, depressed, or hopeless: Several days 3. Trouble falling or staying asleep, or sleeping too much: Not at all 4. Feeling tired or having little energy: More than half the days 5. Poor appetite or overeating: Several days 6. Feeling bad about yourself -- or that you are a failure or have let yourself or your family down: Not at all 7. Trouble concentrating on things, such as reading the newspaper or watching television: Not at all 8. Moving or speaking so slowly that other people could have noticed. Or the opposite - being so fidgety or restless that you have been moving around a lot more than usual: Several days 9. Thoughts that you would be better off , or of hurting yourself in some way: Not at all How difficult have these problems made it for you to do your work, take care of things at home, or get along with other people?: Somewhat difficult Total Score: 5 Self-Efficacy 6-Item Scale 90-Day Re-eval Assessment: We would like to know how confident you are in doing certain activities. Please select your confidence level for: Fatigue Select Number: 10 Physical Discomfort or Pain Select Number: 10 Emotional Distress Select Number: 10 Other Symptoms or Health Problems Select Number: 10 Different Tasks and Activities Select Number: 10 Medication Select Number: 10 Total Score:: 10 Nutrition Survey Nutrition Survey Instructions Scoring Instructions Exercise - 30-day Assessment Physician Prescribed Exercise Modalities: Treadmill, Schwinn Airdyne AD-7 and SciFit Stepper Exercise - 60-day Assessment Physician Prescribed Exercise Modalities: Treadmill, Schwinn Airdyne AD-7 and SciFit Stepper Exercise - 90-day Assessment Visit Date of Eval: 12/28/24 Session #:: 27 Physician Prescribed Exercise Modalities: Treadmill, Schwinn Airdyne AD-7 and SciFit Stepper Frequency: 3x/week for 12 weeks [36 sessions] Intensity: 60-80% of age predicted maximum heart rate reserve Duration: 30 - 45 minutes Current METSs:: 5.1 Target Heart Rate:: 88-117 Current RPE:: 11-12 Maximum Excercise HR:: 119 Resting Blood Pressure: 126/80 Maximum Exercise Blood Pressure: 156/84 EKG Type: SB to ST with rare pac, pvc. Rare sinus arrhythmia Outcomes & Goals Goals:: Verbalizes understanding of THR, RPE & goal METS by session 6, Documents in home exercise log/reports 30 min aerobic 5 day/wk by DC, Demonstrates accurate pulse taking by DC and Other additional outcome/goals: see below Intervention & Plan Exercise Program Goals: Instruct on personal THR & RPE, Instruct on MET level & personal MET goal, Show patient to take own pulse /validate performance until accurate, Instruct on home exercise and Other additional plan/int Physical Activity Home Exercise Physical Activity - Home Exercise: Safe Exercise, Warm-up, Self-monitoring, Cool-Down, Home Exercise > 30 min Daily and Sitting Time <3 hours/daily Outcomes & Goals Outcomes/Goals: Demonstrates correct Warm-up/exercise Cool-Down (S3) if = 2.5 METs, Verbalizes symptoms of exercise intolerance by Session 3 (S3), Demonstrate safe equipment use (S3) & follows exercise prescrition (6) and Other: See below Intervention & Plan Plan/Intervention: Instruct warm-up & cool-down if exercising at > 2 METs, Instruct on symptoms of exercise intolerance & actions to take, Instruct & monitor on saf, Assess intial functional capacity & safety risk and Other See below 30-day Reassessments 30 day Reassessments:: Progressing Reassessment Notes & Comments:: Pt continues to be able to increase his exercise intensity. Will continue to encourage. Exercise - Final/Discharge Physician Prescribed Exercise Modalities: Treadmill, Schwinn Airdyne AD-7 and SciFit Stepper Nutrition - 30-Day Assessment Weight Mgt (Other Care) Height: 6 ft 3 in Weight:: 219 lb 8 oz BMI: 27.4 Nutrition - 60-Day Assessment Weight Mgt (Other Care) Height: 6 ft 3 in Weight:: 219 lb 8 oz BMI: 27.4 Core - 30-Day Assessment Hypertension [employer] Hypertension Guidelines Reassessment Notes & Comments:: 12/19 Lisinopril increased to 20 mg QD Core - Final Assessment Hypertension [employer] Hypertension Guidelines Reassessment Notes & Comments:: 12/19 Lisinopril increased to 20 mg QD Core - 90 Day Assessment Visit Date of Eval: 12/28/24 Session #:: 27 Medication Compliance Preventative Medication(s):: Aspirin, JENNY inhibitor, Clopidogrel/P2Y12 inhibit, Statin/lipid and Eliquis H/O mental health issues: depression, anxiety, or addiction?: No Doesn?t believe in the benefits of treatment?: No Believes medications are unnecessary or harmful?: No Has a concern about medication side effects?: No Expresses concern over the cost of medications?: No Outcomes/Goals: Verbalizes medications,desired effect & common side effects @ DC, Pt self-reports following medication regimen, Keeps card in wallet w/medications listed by DC and Other additional outcome/goals: Interventions/plans: Instruct on medication effects & side effects, Review medication list w/patient every two weeks, Instruct importance of taking meds as ordered & assist problem solving and Other additional Reassessment Notes & Comments:: 12/19 Lisinopril increased to 20 mg QD Tobacco Use Tobacco Use: Non-smoker (Pt smoked for 26 years. Pt was smoking 2 packs a day. Pt stopped 24 years ago.) 30-day Reassessments:: Met Hypertension Hypertension Diagnosis:: Hypertension ICD-10 I10 Resting Blood Pressure:: 126/80 [employer] Hypertension Guidelines Peak Exercise Blood Pressure:: 156/84 Outcomes/Goals: Able to verbalize/achieve optimal blood pressure <130/80, Incorporates diet changes & exercise for blood pressure control by DC and Other additional outcomes/goals Interventions/plan: Instruct on optimal blood pressure, hypertension & medications, Instruct on effects of sodium, alcohol, stress, exercise &hypertension and Other additional plan/interventions 30 day Reassessments:: Progressing Reassessment Notes & Comments:: 12/19 Lisinopril increased to 20 mg QD Tobacco Cessation Referral Smoking Cessation Referral:: No Individual Education/Counseling:: No Education Schedule Given:: Yes Psychosocial - 30-Day Assess Target Goals Target Goals Referral to Behavioral Health PS - Interventions: Yes: Attend Stress Management Classes Psychosocial - 60-Day Assess Target Goals Target Goals Referral to Behavioral Health PS - Interventions: Yes: Attend Stress Management Classes Psychosocial - -Day Assess VIsit Date of Eval: 12/28/24 Session #:: 27 History of previous Mental disease:: No Target Goals Target Goals Psychosocial Test Tool Used:: [employer] QOL Cardiac and PHQ-9 Questionnaire phq-9 Severity See PHQ-9 Score: 5 Referral to Behavioral Health PS - Interventions: Yes: Attend Stress Management Classes Outcomes/Goals: See list Psychosocial Outcomes/Goals:: ID's personal stressors & 2 strategies to manage stress by discharge and Other Additional outcome/goals: Intervention/Plan: See List Interventions/Plan:: Assess stressors,coping strategies & signs of derpression on admission, Instruct/assist pt to develop coping & personal stress Mgt strategies, Refer to Behavioral Health if appropriate, Refer to Physician if appropriate, Instruct patient to recognize signs & symptoms of depression, I nstruct patient to recog and Other additional plan/intervention 30-day Reassessments: 30 day Reassessments:: Met Reassessment Notes & Comments:: Pt denies any psychosocial issues at this time. Psychosocial - Final Assessmen Target Goals Target Goals Referral to Behavioral Health PS - Interventions: Yes: Attend Stress Management Classes Nutrition - 90-Day Assessment Program Goals Nutrition Program Goals Patient has diagnosis of Hyperlipidemia (ICD E78)?: Yes Visit Date of Eval: 12/28/24 Session #:: 27 Cholesterol/Lipids (Other Core Measures) Determine presence & major risk factors that modify LDL goal: Cigarette smoking, Hypertension or hypertensive medication, Low HDL cholesterol <40 mg/dL*, Family history of premature CHD in Male < 55 years: female <65 yearsFa and Age men > 45 years; women >/= 55 years Outcomes/Goals: Pt IDs own risk factors & lifestyle modifications by Session 10, Verbalizes symptoms of angina & response by session 3., Pt independently manages and Other Additional Outcomes/Goals: Intervention/Plan: Advocate for lipid panel cholesterol medication if applicable, Instruct on personal lipid levels & lipid goals/NCEP guidelines, Instruct on cholesterol and Other additional plan/int Diabetes (Other Core Measures) Diabetes Type: Not Applicable Weight Mgt (Other Care) Height: 6 ft 3 in Weight:: 219 lb 8 oz BMI: 27.4 Diagnosis Overweight/Obesity BMI> 30% ICD-10 E66: No Diagnosis High BMI/Morbid Obesity BMI> 35% ICD-10 Z68: No Outcomes/Goals: Pt sets, maintains & shows weight loss goal & trend during rehab and Other additional outcomes/goals Intervention/Plan: Instruct on ideal BMI & set weight loss goal w/patient, Assist pt to ID & incorporate diet changes for weight loss by S9, Refer to Structured Weight Loss program as appropriate, Encourage goal of using 250- 300dcal per session for weight loss and Other additional plan/interventions Healthy Eating Habits Will attend diet classes:: Yes Outcomes/Goals:: Consume diet rich in vegs,fruits,whole grain/high fiber,fish,lean meat, Limit sat/trans fats,cholesterol & added salts & sugars and Other additional outcome/goals: Intervention/Plan:: Assess current eating habits and Other Additional plan/interventions 30-day Reassessments:: Met Reassessment Notes & Comments:: Pt has attended nutrition class and is at a healthy weight. Pt understands the benefits of a heart healthy low sodium diet. Education Gave educational materials for:: Signs & symptoms of hypoglycemia, Signs & symptoms of hyperglycemia, Relate diabetes to coronary artery disease and Healthy eating Nutrition - Final Assessment Weight Mgt (Other Care) Height: 6 ft 3 in Weight:: 219 lb 8 oz BMI: 27.4
[2024-12-28 08:35] VITALS: BP 126/80; BMI 27.4
== END 2025-01-09 23:59 ==
LOC: CR 09:15
PROVIDERS: PCP Family Medicine; Referring Provider Thoracic Surgery (Cardiothoracic Vascular Surgery); Visit Provider Thoracic Surgery (Cardiothoracic Vascular Surgery)
DX: Z95.1 Presence of aortocoronary bypass graft (principal)
CPT/HCPCS: 93798

== ENCOUNTER 2025-01-16 09:15 | Outpatient (RCR) | payer MEDICARE, BC, SELFPAY ==
[2024-12-28 08:35] VITALS: BMI 27.4
[2025-01-10 00:38] VITALS: BP 118/68; BP 126/80; BP 150/90
== END 2025-02-09 23:59 ==
LOC: CR 09:15
PROVIDERS: PCP Family Medicine; Referring Provider Thoracic Surgery (Cardiothoracic Vascular Surgery); Visit Provider Thoracic Surgery (Cardiothoracic Vascular Surgery)
DX: Z95.1 Presence of aortocoronary bypass graft (principal)
CPT/HCPCS: 93798

== ENCOUNTER → 2025-08-21 | Outpatient (CLI) | payer MEDICARE, BC, SELFPAY ==
[2024-12-28 08:35] VITALS: BMI 27.4
--- NOTE | 2025-08-21 16:52 | CT_ITS ---
PROCEDURE: ABDOMEN/PELVIS WITHOUT CONT 08/21/2025 REASON FOR EXAM: GROSS HEMATURIA TECHNIQUE: Procedure Code: [id number] Modality: CT Procedure: ABDOMEN/PELVIS WITHOUT CONT Noncontrast technique limits evaluation of the abdominal and pelvic viscera. Coronal and Sagittal reconstruction series were provided. One or more dose reduction techniques were used (e.g., Automated exposure control, adjustment of the mA and/or kV according to patient size, use of iterative reconstruction technique). RADIATION DOSE SUMMARY: CTDlvol: 14.34 mGy DLP: 831.09 mGycm COMPARISON: None FINDINGS: The liver is normal in size. There are multiple bilobar hypodense focal lesions seen displaying hypodense attenuation likely cysts, the largest measures 3.4 cm in diameter seen in the left lobe. No intra- or extrahepatic biliary duct dilatation is identified. The gallbladder fossa is unremarkable. The spleen, pancreas, and adrenal glands are unremarkable. The kidneys are normal in size and attenuation with lobulated contour. There is no hydronephrosis. No renal calculi noted. A 2.6 cm left renal upper pole cortical cyst is seen. Mild bilateral perinephric fat stranding is seen. The ureters are normal in caliber and no ureteral calculi are seen. No focal or diffuse bowel wall thickening or bowel obstruction is identified. The appendix is not seen. Mild diverticular disease is seen with no complications. The abdominal aorta and its branches demonstrate atheromatous calcifications with two consecutive fusiform 3.6 cm aneurysms seen. The inferior vena cava appears unremarkable. No adenopathy is seen. No free intraperitoneal fluid, fluid collection or free air is identified. The prostate is seen enlarged measures 4.6 x 4 x 4.1 cm along its maximum dimensions. Internal parenchymal calcifications are noted. Diffuse urinary bladder wall thickening is seen that may represent sequelae of chronic bladder outlet obstruction versus cystitis, recommend clinical correlation. Fat-containing left inguinal hernia is seen. No aggressive-appearing osseous lesions are identified. Degenerative changes are present in the spine. The included lower chest cuts show bilateral subpleural reticulations suggesting possible interstital lung changes. Median sternotomy wires are seen. CT/Abdomen/Pelvis without Cont IMPRESSION: Multiple heaptic hypodense focal lesions of fluid attenuation likely cysts, rec ommend ultrasound assessment if needed. Mild diverticular disease is seen with no complications. Enlarged prostate. Diffuse urinary bladder wall thickening seen that may represent sequelae of chr onic bladder outlet obstruction versus cystitis, recommend clinical correlation. Small left fat-containing inguinal hernia. Arthrosclerotic disease of the abdominal aorta and its branches with two consec utive fusiform 3.6 cm aneurysms seen. Reading Location: [place] [id number]
== END | disposition home or self-care (01) ==
LOC: CT 16:50
PROVIDERS: PCP Family Medicine; Referring Provider Urology; Visit Provider Urology
DX: R31.0 Gross hematuria (principal)
CPT/HCPCS: 74176